=== PATIENT | female | born 1990 | race Caucasian/White ===

== ENCOUNTER 2023-01-23 17:43 | Emergency (ER) | payer SELFPAY ==
[~2023-01-23] VITALS: Ht 165.1 cm; Wt 73.2 kg
[2023-01-23] MEDS ORDERED: PANTOPRAZOLE INJECTION 40 MG VIAL IV STA (17:57)
[2023-01-23] MEDS ORDERED: ONDANSETRON INJECTION 4 MG/2 ML (SDV) IVP STA ×2 (17:57→19:10)
[2023-01-23] MEDS ORDERED: KETOROLAC INJ 15 MG/ML VIAL IVP STA (17:57)
[2023-01-23] MEDS ORDERED: NS IV 1000 ML 1,000 ML IV STA (17:57)
[2023-01-23 18:00] LABS: BILIRUBIN,URINE NEGATIVE (NEGATIVE); CLARITY,URINE CLEAR; COLOR,URINE YELLOW; GLUCOSE, URINE (UA) NEGATIVE (NEGATIVE); KETONES,URINE NEGATIVE (NEGATIVE); LEUKOCYTE ESTERASE ,URINE NEGATIVE (NEGATIVE); NITRITE,URINE NEGATIVE (NEGATIVE); PROTEIN,URINE TRACE (NEGATIVE)
[2023-01-23 18:05] LABS: BACTERIA,URINE FEW /HPF
[2023-01-23 18:05] LABS: BASOPHILS # (AUTO) 0.1 10^3/uL (0.0-0.1); BASOPHILS % (AUTO) 0 % (0-10); EOSINOPHILS % (AUTO) 0 % (0-10); HEMATOCRIT 46 % (35-52); HEMOGLOBIN 15.7 g/dL (11.5-16.0); LYMPHOCYTES # (AUTO) 2.7 10^3/uL (1.0-4.0); LYMPHOCYTES % (AUTO) 12 % (12-44); MEAN CORPUSCULAR HEMOGLOBIN 29 pg (25-34); MEAN CORPUSCULAR HGB CONC 34 g/dL (32-36); MEAN CORPUSCULAR VOLUME 84 fL (80-99); MEAN PLATELET VOLUME 8.5 fL (9.0-12.2); MONOCYTES # (AUTO) 1.7 10^3/uL (0.0-1.0); MONOCYTES % (AUTO) 7 % (0-12); NEUTROPHILS # (AUTO) 18.8 10^3/uL (1.8-7.8); NEUTROPHILS % (AUTO) 80 % (42-75); PLATELET COUNT 328 10^3/uL (130-400); WHITE BLOOD COUNT 23.5 10^3/uL (4.3-11.0)
--- NOTE | 2023-01-23 18:05 | ED GI ---
General Chief Complaint: Abdominal/GI Problems Stated Complaint: VOMITING Source of Information: Patient History of Present Illness Date Seen by Provider: Jan 23, 2023 Time Seen by Provider: 17:46 Initial Comments 32-year-old female presenting with complaints of nausea and vomiting x3 days. She states that she also had a fever yesterday of 101. She has had problems with this in the past when she was having ulcers. She says that its been over any months for that. They stopped all of her medications approximately 4 to 5 months ago. She had been doing well until this last few days. She denies having any diarrhea, pain with urination, chest pain, abdominal pain. She states that her epigastric area is sore from all the vomiting but otherwise does not have any pain. She reports last menstrual period was 2 weeks ago and normal for her. Timing/Duration: 2-3 Days Severity/Quality: Mild, Cramping (epigastric) Location: Epigastric Modifying Factors: Worsens With Eating Associated Symptoms: No Back Pain, No Chest Pain, No Diaphoresis; Fever/Chills, Fatigue, Headache, Nausea/Vomiting; No Rash, No Shortness of Air, No Swelling/Mass in Abdomen, No Syncope; Weakness Allergies and Home Medications Allergies Coded Allergies: No Known Drug Allergies (Unverified , 01/23/23) Patient Home Medication List Home Medication List Reviewed: Yes Cephalexin (Cephalexin) 500 Mg Tablet, 500 MG PO TID Prescribed by: JERRY RENE on 01/23/231900 Ondansetron (Ondansetron Odt) 4 Mg Tab.rapdis, 4 MG PO Q6H PRN for NA USEA/VOMITING Prescribed by: JERRY RENE on 01/23/231901 Review of Systems Review of Systems Constitutional: No chills; dizziness, fever, malaise EENTM: No Symptoms Reported Respiratory: No Symptoms Reported Cardiovascular: No Symptoms Reported Gastrointestinal: See HPI Genitourinary: No Symptoms Reported Musculoskeletal: no symptoms reported Skin: no symptoms reported Psychiatric/Neurological: Headache Past Lrwgdfv-Tqpknz-Pdrlwc Hx Patient Social History Tobacco Use?: No Smoking Status: Never a Smoker Smokeless Tobacco Frequency: Never a User Use of E-Cig and/or Vaping dev: No Use of E-Cig and/or Vaping Jas: Never a User Substance use?: No Alcohol Use?: No Pt feels they are or have been: No Past Medical History Surgery/Hospitalization HX: GERD, Ulcers Surgeries: Yes Abdominal (hiatal hernia repair that failed), Appendectomy, Gallbladder, Tubal Ligation Physical Exam Vital Signs Vital Signs - First Documented 01/23/23 01/23/23 17:50 19:32 Temp 37.0 Pulse 101 Resp 15 B/P (MAP) 143/94 (110) Pulse Ox 98 O2 Delivery Room Air Capillary Refill : Height/Weight/BMI Height: '" Weight: lbs. oz. kg; BMI Method: General Appearance: WD/WN, mild distress (appears to not feel well) HEENT: PERRL/EOMI, pharynx normal Neck: non-tender, full range of motion, supple, normal inspection Respiratory: chest non-tender, lungs clear, normal breath sounds Cardiovascular: normal peripheral pulses, regular rate, rhythm Gastrointestinal: normal bowel sounds, soft, no pulsatile mass; No distended, No guarding, No rebound; tenderness (mild epigastric tenderness) Rectal: deferred Extremities: normal range of motion, non-tender, normal capillary refill Back: no CVA tenderness Neurologic/Psychiatric: alert, oriented x 3 Skin: normal color, warm/dry Progress/Results/Core Measures Results/Orders Lab Results Laboratory Tests Test 01/23/23 17:50 01/23/23 18:00 01/23/23 18:54 Range/Units Urine Color YELLOW Urine Clarity CLEAR Urine pH 7.0 5-9 Urine Specific [place] 1.015 L 1.016-1.022 Urine Protein TRACE H NEGATIVE Urine Glucose (UA) NEGATIVE NEGATIVE Urine Ketones NEGATIVE NEGATIVE Urine Nitrite NEGATIVE NEGATIVE Urine Bilirubin NEGATIVE NEGATIVE Urine Urobilinogen 2.0 < = 1.0 MG/DL Urine Leukocyte Esterase NEGATIVE NEGATIVE Urine RBC (Auto) TRACE-I H NEGATIVE Urine RBC 10-25 H /HPF Urine WBC 5-10 H /HPF Urine Squamous Epithelial Cells 5-10 /HPF Urine Crystals NONE /LPF Urine Bacteria FEW H /HPF Urine Casts NONE /LPF Urine Mucus MODERATE H /LPF Urine Culture Indicated YES Urine Opiates Screen NEGATIVE NEGATIVE Urine Oxycodone Screen NEGATIVE NEGATIVE Urine Methadone Screen NEGATIVE NEGATIVE Urine Propoxyphene Screen NEGATIVE NEGATIVE Urine Barbiturates Screen NEGATIVE NEGATIVE Ur Tricyclic Antidepressants Screen NEGATIVE NEGATIVE Urine Phencyclidine Screen NEGATIVE NEGATIVE Urine Amphetamines Screen NEGATIVE NEGATIVE Urine Methamphetamines Screen NEGATIVE NEGATIVE Urine Benzodiazepines Screen NEGATIVE NEGATIVE Urine Cocaine Screen NEGATIVE NEGATIVE Urine Cannabinoids Screen POSITIVE H NEGATIVE White Blood Count 23.5 H 4.3-11.0 10^3/uL Red Blood Count 5.50 H 3.80-5.11 10^6/uL Hemoglobin 15.7 11.5-16.0 g/dL Hematocrit 46 35-52 % Mean Corpuscular Volume 84 80-99 fL Mean Corpuscular Hemoglobin 29 25-34 pg Mean Corpuscular Hemoglobin Concent 34 32-36 g/dL Red Cell Distribution Width 13.2 10.0-14.5 % Platelet Count 328 130-400 10^3/uL Mean Platelet Volume 8.5 L 9.0-12.2 fL Immature Granulocyte % (Auto) 1 % Neutrophils (%) (Auto) 80 H 42-75 % Lymphocytes (%) (Auto) 12 12-44 % Monocytes (%) (Auto) 7 0-12 % Eosinophils (%) (Auto) 0 0-10 % Basophils (%) (Auto) 0 0-10 % Neutrophils # (Auto) 18.8 H 1.8-7.8 10^3/uL Lymphocytes # (Auto) 2.7 1.0-4.0 10^3/uL Monocytes # (Auto) 1.7 H 0.0-1.0 10^3/uL Eosinophils # (Auto) 0.0 0.0-0.3 10^3/uL Basophils # (Auto) 0.1 0.0-0.1 10^3/uL Immature Granulocyte # (Auto) 0.1 0.0-0.1 10^3/uL Neutrophils % (Manual) 78 % Lymphocytes % (Manual) 12 % Monocytes % (Manual) 10 % Sodium Level 134 L 135-145 MMOL/L Potassium Level 3.2 L 3.6-5.0 MMOL/L Chloride Level 96 L 98-107 MMOL/L Carbon Dioxide Level 26 21-32 MMOL/L Anion Gap 12 5-14 MMOL/L Blood Urea Nitrogen 14 7-18 MG/DL Creatinine 0.61 0.60-1.30 MG/DL Estimat Glomerular Filtration Rate 123 BUN/Creatinine Ratio 23 Glucose Level 126 H 70-105 MG/DL Calcium Level 9.4 8.5-10.1 MG/DL Corrected Calcium 8.5-10.1 MG/DL Total Bilirubin 2.7 H 0.1-1.0 MG/DL Aspartate Amino Transf (AST/SGOT) 19 5-34 U/L Alanine Aminotransferase (ALT/SGPT) 25 0-55 U/L Alkaline Phosphatase 79 40-136 U/L Total Protein 8.3 H 6.4-8.2 GM/DL Albumin 4.6 H 3.2-4.5 GM/DL Lipase 23 8-78 U/L Influenza Type A (RT-PCR) Not Detected Not Detecte Influenza Type B (RT-PCR) Not Detected Not Detecte SARS-CoV-2 RNA (RT-PCR) Not Detected Not Detecte My Orders Orders - JERRY RENE MD Ua Culture If Indicated (01/23/23 17:48) Urine Bedside (01/23/23 17:48) Drug Screen Stat (Urine) (01/23/23 17:48) Comprehensive Metabolic Panel (01/23/23 17:57) Lipase (01/23/23 17:57) Ed Iv/Invasive Line Start (01/23/23 17:57) Cbc And Automated Diff (01/23/23 17:57) Covid 19 Inhouse Test (01/23/23 17:57) Influenza A And B By Pcr (01/23/23 17:57) Ns Iv 1000 Ml (Ns Iv 1000 Ml) (01/23/23 17:57) Ondansetron Injection (Ondansetron Inj (01/23/23 17:57) Ketorolac Injection (Ketorolac Injection (01/23/23 17:57) Pantoprazole Injection (Pantoprazole Inj (01/23/23 17:57) Urine Culture (01/23/23 17:50) Manual Differential (01/23/23 18:00) Ct Abdomen/Pelvis W (01/23/23 18:16) Iohexol Injection (Omnipaque 350 Mg/Ml 1 (01/23/23 18:30) Received Contrast (Hold Metformin- Contr (01/23/23 18:30) Ns (Ivpb) 100 Ml (Sodium Chloride 0.9% 1 (01/23/23 18:30) Ceftriaxone Iv/Im (Ceftriaxone Iv/Im) (01/23/23 19:03) Ondansetron Injection (Ondansetron Inj (01/23/23 19:10) Ns (Ivpb) 50 Ml (Sodium Chloride 0.9% 50 (01/23/23 19:08) Medications Given in ED Current Medications Medications Dose Ordered Sig/Kami Route Start Time Stop Time Status Last Admin Dose Admin Iohexol 100 ml ONCE ONCE IV 01/23/23 18:30 01/23/23 18:31 DC 01/23/23 18:29 80 ML Sodium Chloride 100 ml ONCE ONCE IV 01/23/23 18:30 01/23/23 18:31 DC 01/23/23 18:29 100 ML Vital Signs/I&O 01/23/23 01/23/23 17:50 19:32 Temp 37.0 Pulse 101 92 Resp 15 18 B/P (MAP) 143/94 (110) 126/84 Pulse Ox 98 O2 Delivery Room Air Room Air Progress Progress Note #1: Progress Note Differential diagnosis includes gastritis, GERD, peptic ulcer disease, colitis, diverticulitis, UTI, pyelonephritis. Establish peripheral IV access and administer normal saline 1 L IV fluid bolus for hydration, Zofran 4 mg IV for nausea and vomiting, Toradol 15 mg IV to help with headache and pain, pantoprazole 40 mg IV to help with gastritis. Send labs for complete blood count, comprehensive metabolic profile, lipase. Urinalysis along with urine drug screen and bedside urine to look for other reasons that could be causing her to have nausea and vomiting. Swab to check for COVID and flu Progress Note #2: Time: 18:15 Progress Note WBC count elevated to 23.5 with 78 % neutrophils. Comprehensive metabolic p rofile with elevated total bilirubin 2.7. Normal lipase of 23 to go against pancreatitis. Other electrolytes and comprehensive metabolic profile without acute significant abnormality. Urinalysis had specific gravity of 1.015 with 10- 25 RBC and 5-10 WBC and few bacteria. Negative Nit/LE. Culture reflexed. Will add on CT scan of abdomen/pelvis with IV contrast with her having elevated WBC. Patient reports she has had hiatal hernia with surgery before but it came back. She also has had cholecystectomy, appendectomy, tubal ligation. Progress Note #3: Time: 18:[address] scan of abd/pelvis with IV contrast shows fatty liver and some thickening of the distal esophagus. Otherwise no acute abnormality to account for her symptoms. She did have a large right ovarian cyst. Will treat for UTI and have her continue medicine for nausea/vomiting. She may need a repeat EGD or colonoscopy. Give Rocephin 1 g IV here in the ED. For home prescribed cephalexin 500 mg p.o. 3 times daily. Patient states that she already has some Protonix that she can take at home. We will also prescribe Zofran ODT 4 mg every 6 hours as needed nausea and vomiting. Encouraged to follow-up with the clinic and keep sipping on fluids to stay hydrated. Diagnostic Imaging Diagonstic Imaging: CT Plain Films/CT/US/NM/MRI: abdomen, pelvis Comments NAME: [facility] REC#: [id number] PT STATUS: REG ER : 1990 PHYSICIAN: JERRY RENE MD ADMIT DATE: 01/23/23/ER FS Draft Date of Exam:01/23/23 CT ABDOMEN/PELVIS W PROCEDURE: CT abdomen and pelvis with contrast. TECHNIQUE: Multiple contiguous axial images were obtained through the abdomen and pelvis after administration of intravenous contrast. Auto Exposure Controls were utilized during the CT exam to meet ALARA standards for radiation dose reduction. All CT scans use one or more of the following dose optimizing techniques: automated exposure control, MA and/or KvP adjustment based on patient size and exam type or iterative reconstruction. INDICATION: Epigastric pain with nausea and emesis There is mural thickening in the distal esophagus. This could be related to esophagitis. Ill-shaped radiopaque object is also noted in the upper stomach. Low-density throughout the liver indicating steatosis. Gallbladder surgically absent. Spleen has a normal appearance. There is no evidence of pancreatic, adrenal gland or renal abnormality. No evidence of free fluid in the abdomen or pelvis. The appendix is surgically absent. Unopacified urinary bladder is unremarkable. There is a small amount of pelvic fluid with dominant cyst in right adnexal region reaching approximately 3.5 cm in diameter. IMPRESSION: Hepatic steatosis without other evidence of acute abnormality in the abdomen. There is however mural thickening of distal esophagus which can be related to esophagitis. Small amount of pelvic free fluid is noted with 3.5 cm cystic structure in the right adnexal region likely representing complicated ovarian cyst. Ultrasound follow-up could be performed for further characterization if indicated. Dictated on workstation # [id number] Dict: 01/23/23 1839 Trans: 01/23/23 1844 [id number] Interpreted by: DENIA RANDALL MD Electronically signed by: Reviewed: Reviewed by Me Departure Impression Primary Impression: Acute cystitis without hematuria Additional Impressions: Nausea and vomiting in adult Right ovarian cyst Disposition: HOME, SELF-CARE Condition: Stable Departure-Patient Inst. Decision time for Depature: 19:11 Referrals: ERICA KLINE APRN (PCP) Primary Care Physician NO,LOCAL PHYSICIAN (Family) Primary Care Physician Patient Instructions: Nausea and Vomiting, Adult ED, Urinary Tract Infection, Adult ED, Ovarian Cyst ED Add. Discharge Instructions: Take the nausea medicine to try and help keep your stomach settled. Take antibiotics until gone to treat for urine infection. Check back with clinic as they may need to set you up to do an EGD or scope to look at the lining of the stomach and esophagus. Follow a liquid diet for 24 to 48 hours then advance to bland foods as you tolerate them. All discharge instructions reviewed with patient and/or family. Voiced understanding. Scripts Ondansetron (Ondansetron Odt) 4 Mg Tab.rapdis 4 MG PO Q6H PRN for NAUSEA/VOMITING for 5 Days, #20 TAB 0 Refills Prov: JERRY RENE MD 01/23/23 Cephalexin (Cephalexin) 500 Mg Tablet 500 MG PO TID for UTI for 5 Days, #15 TAB 0 Refills Prov: JERRY RENE MD 01/23/23 JERRY RENE MD Jan 23, 2023 18:05
[2023-01-23 18:13] LABS: AMPHETAMINE SCREEN, URINE NEGATIVE (NEGATIVE); BARBITURATE SCREEN URINE NEGATIVE (NEGATIVE); CANNABINOID SCREEN, URINE POSITIVE (NEGATIVE); COCAINE SCREEN URINE NEGATIVE (NEGATIVE); METHADONE STAT NEGATIVE (NEGATIVE); OPIATE SCREEN URINE NEGATIVE (NEGATIVE); OXYCODONE STAT NEGATIVE (NEGATIVE); PROPOXYPHENE STAT NEGATIVE (NEGATIVE); TRICYCLIC ANTIDEPRESSANTS SCRE NEGATIVE (NEGATIVE)
[2023-01-23 18:19] LABS: BILIRUBIN,TOTAL 2.7 MG/DL (0.1-1.0); CALCIUM 9.4 MG/DL (8.5-10.1); CHLORIDE 96 MMOL/L (98-107); POTASSIUM 3.2 MMOL/L (3.6-5.0); SODIUM 134 MMOL/L (135-145)
[2023-01-23 18:20] LABS: LIPASE 23 U/L (8-78); TOTAL PROTEIN 8.3 GM/DL (6.4-8.2)
[2023-01-23 18:26] LABS: ALANINE AMINOTRANSFERASE 25 U/L (0-55); ALBUMIN 4.6 GM/DL (3.2-4.5); ALKALINE PHOSPHATASE 79 U/L (40-136); BUN/CREATININE RATIO 23; CARBON DIOXIDE 26 MMOL/L (21-32); CREATININE SERUM 0.61 MG/DL (0.60-1.30); GFR ESTIMATED 123; GLUCOSE 126 MG/DL (70-105)
[2023-01-23 18:27] LABS: LYMPHOCYTES % (MANUAL) 12 %; MONOCYTES % (MANUAL) 10 %; NEUTROPHILS % (MANUAL) 78 %
[2023-01-23] MEDS ORDERED: NS 100 ML (IVPB) BAG IV ONE (18:30)
[2023-01-23] MEDS ORDERED: IOHEXOL 350 MG/ML 100 ML (OMNIPAQUE 350) VIAL IV ONE (18:30)
[2023-01-23] MEDS ORDERED: HOLD METFORMIN - RECEIVED CONTRAST 20 ML VIAL IV SCH (18:30)
--- NOTE | 2023-01-23 18:44 | Diagnostic Imaging Report ---
PROCEDURE: CT abdomen and pelvis with contrast. TECHNIQUE: Multiple contiguous axial images were obtained through the abdomen and pelvis after administration of intravenous contrast. Auto Exposure Controls were utilized during the CT exam to meet ALARA standards for radiation dose reduction. All CT scans use one or more of the following dose optimizing techniques: automated exposure control, MA and/or KvP adjustment based on patient size and exam type or iterative reconstruction. INDICATION: Epigastric pain with nausea and emesis There is mural thickening in the distal esophagus. This could be related to esophagitis. Ill-shaped radiopaque object is also noted in the upper stomach. Low-density throughout the liver indicating steatosis. Gallbladder surgically absent. Spleen has a normal appearance. There is no evidence of pancreatic, adrenal gland or renal abnormality. No evidence of free fluid in the abdomen or pelvis. The appendix is surgically absent. Unopacified urinary bladder is unremarkable. There is a small amount of pelvic fluid with dominant cyst in right adnexal region reaching approximately 3.5 cm in diameter. IMPRESSION: Hepatic steatosis without other evidence of acute abnormality in the abdomen. There is however mural thickening of distal esophagus which can be related to esophagitis. Small amount of pelvic free fluid is noted with 3.5 cm cystic structure in the right adnexal region likely representing complicated ovarian cyst. Ultrasound follow-up could be performed for further characterization if indicated. Dictated by: Dictated on workstation # [id number]
[2023-01-23] MEDS ORDERED: CEPH500T PO (19:01)
[2023-01-23] MEDS ORDERED: ONDA4TAB11 PO (19:02)
[2023-01-23] MEDS ORDERED: cefTRIAXone IV/IM 1,000 MG in NS (IVPB) 50 ML 50 ML IV STA (19:03)
[2023-01-23] MEDS ORDERED: NS (IVPB) 50 ML 50 ML ONE (19:08)
[2023-01-23 19:32] VITALS: BP 126/84
== END 2023-01-23 19:32 | disposition home or self-care (01) ==
LOC: ER FS 17:46
DX: N30.00 Acute cystitis without hematuria (principal); N83.201 Unspecified ovarian cyst, right side; K76.0 Fatty (change of) liver, not elsewhere classified; K22.89 Other specified disease of esophagus; Z90.49 Acquired absence of other specified parts of digestive tract; Z11.52 Encounter for screening for COVID-19
CPT/HCPCS: 36415; 74177; 80053; 80306; 81000; 83690; 84703; 85007; 85027; 87088; 87636; Q9967

== ENCOUNTER 2023-01-26 15:31 | Emergency (ER) | payer SELFPAY ==
[~2023-01-26] VITALS: Ht 165 cm; Wt 73.2 kg
[~2023-01-26 15:31] MED LIST: CEPH500T PO; ONDA4TAB11 PO
[2023-01-26] MEDS ORDERED: TERB15CR6 TP (15:56)
--- NOTE | 2023-01-26 15:57 | ED Integumentary General ---
General Chief Complaint: Skin/Wound Problems Stated Complaint: RASH ALL OVER BODY Nursing Triage Note: PT HAS FEW SPOTS OF A RED CIRCULAR RASH ONE ON HER FACE ONE ON EACH ARM AND ONE ON HER RIGHT UPPER SIDE. Source: patient History of Present Illness Date Seen by Provider: Jan 26, 2023 Time Seen by Provider: 15:41 Initial Comments 32-year-old female presenting with rash that started on her right side of her chest. She thought that it initially was just irritation from her bra and it was causing itching. Since then she developed a rash on her inside of her bilateral arms. Today she has a spot on the face by her left eye. She had tried using some [id number] Lotrimin without any improvement. The spots do itch and have a circular appearance and are dry and scaly. She was unsure of the cause. She does have a cat so she was unsure if it might be ringworm. Timing/Duration: getting worse (Over the last 3 days) Severity: mild Location: face, torso (Right side of her chest at the bra line), extremities (Bilateral upper arms) Possible Cause: no cause identified Modifying Factors: worse with scratching Associated Symptoms: change in skin texture; No fever, No flushing, No headache, No hives, No jaundice, No malaise, No nasal congestion, No numbness, No pallor, No paresthesia, No petechiae; rash Allergies and Home Medications Allergies Coded Allergies: No Known Drug Allergies (Unverified , 01/23/23) Patient Home Medication List Home Medication List Reviewed: Yes Cephalexin (Cephalexin) 500 Mg Tablet, 500 MG PO TID Prescribed by: JERRY RENE on 01/23/231900 Ondansetron (Ondansetron Odt) 4 Mg Tab.rapdis, 4 MG PO Q6H PRN for NAUSEA/VOMITING Prescribed by: JERRY RENE on 01/23/231901 Terbinafine HCl (Terbinafine) 1 % Cream..g., 15 GM TP UD Prescribed by: JERRY RENE on 01/26/23 4856 Review of Systems Review of Systems Constitutional: No chills, No fever EENTM: see HPI Respiratory: no symptoms reported Cardiovascular: no symptoms reported Gastrointestinal: no symptoms reported Genitourinary: no symptoms reported Musculoskeletal: no symptoms reported Skin: see HPI Psychiatric/Neurological: No Symptoms Reported Past Nkfhgnp-Nhmmbs-Nzkupm Hx Patient Social History Tobacco Use?: Yes Tobacco type used: Cigarettes Smoking Status: Current Everyday Smoker Use of E-Cig and/or Vaping dev: No Substance use?: No Alcohol Use?: No Pt feels they are or have been: No Past Medical History Surgery/Hospitalization HX: GERD, Ulcers Surgeries: Yes Abdominal, Appendectomy, Gallbladder, Tubal Ligation Physical Exam Vital Signs Vital Signs - First Documented 01/26/23 15:35 Temp 37.1 Pulse 73 Resp 16 B/P (MAP) 116/71 (86) Pulse Ox 99 O2 Delivery Room Air Capillary Refill : Less Than 3 Seconds General Appearance: WD/WN, no apparent distress HEENT: PERRL/EOMI Cardiovascular: normal peripheral pulses Neurologic/Psychiatric: alert, oriented x 3 Skin: warm/dry, rash (erythematous circular areas on right chest wall at bra line, left face by eye, bilateral arms) Progress/Results/Core Measures Results/Orders Vital Signs/I&O 01/26/23 01/26/23 15:35 15:58 Temp 37.1 37.1 Pulse 73 73 Resp 16 16 B/P (MAP) 116/71 (86) 116/71 Pulse Ox 99 99 O2 Delivery Room Air Room Air Blood Pressure Mean: 86 Progress Progress Note : Progress Note Rash areas appear consistent with tinea corporis. Will try treating with terbinafine since she has not responded to [id number] Lotrimin. Counseled on follow-up and return precautions. Departure Impression Primary Impression: Tinea corporis Disposition: HOME, SELF-CARE Condition: Stable Departure-Patient Inst. Decision time for Depature: 15:57 Referrals: ERICA KLINE APRN (PCP) Primary Care Physician NO,LOCAL PHYSICIAN (Family) Primary Care Physician Patient Instructions: Fungal Skin Rash ED Add. Discharge Instructions: Apply antifungal to the rash daily. Continue the medicine at least 48 hours after the rash is cleared. May establish and follow-up with [facility] by calling [phone] All discharge instructions reviewed with patient and/or family. Voiced understanding. Scripts Terbinafine HCl (Terbinafine) 1 % Cream..g. 15 GM TP UD for 10 Days, #15 GM 1 Refill Apply thin layer to rash areas daily. Continue at least 48 hours after rash resolves Prov: ENYART,JERRY E MD 01/26/23 JERRY RENE MD Jan 26, 2023 15:57
[2023-01-26 15:58] VITALS: BP 116/71
== END 2023-01-26 16:00 | disposition home or self-care (01) ==
LOC: EDUNIT# 15:31 → ER FS 15:32
DX: B35.4 Tinea corporis (principal); F17.210 Nicotine dependence, cigarettes, uncomplicated
CPT/HCPCS: 99281